=== PATIENT | female | born 1960 | race Native Hawaiian/Other Pacific Islander ===

== ENCOUNTER 2017-01-24 09:55 | Outpatient (CLI) | payer OTHER | END 2017-01-24 19:13 | disposition home or self-care (01) | LOC: MAMMO 09:55 | DX: Z12.31 Encounter for screening mammogram for malignant neoplasm of breast (principal) | CPT/HCPCS: G0202-TC ==

== ENCOUNTER 2019-06-17 11:03 | Emergency (ER) | payer OTHER ==
[~2019-06-17] VITALS: Ht 154.9 cm; Wt 59.0 kg
[2019-06-17 13:00] VITALS: BP 159/61; TEMP 97.9
== END 2019-06-17 14:32 | disposition home or self-care (01) ==
LOC: ED 11:03
DX: R30.0 Dysuria (principal); N20.0 Calculus of kidney
CPT/HCPCS: 81000; 99282; 99283

== ENCOUNTER 2020-04-20 05:50 | Emergency (ER) | payer OTHER ==
[~2020-04-20] VITALS: Ht 154.9 cm; Wt 63.5 kg
[2020-04-20 06:00] VITALS: TEMP 98
[2020-04-20 06:42] VITALS: BP 155/67
== END 2020-04-20 06:42 | disposition home or self-care (01) ==
LOC: ED 05:50
DX: M54.5 Low back pain (principal); G89.29 Other chronic pain; M54.32 Sciatica, left side; M54.31 Sciatica, right side
CPT/HCPCS: 96372; 99282; 99283; J1885; J2930

== ENCOUNTER 2020-06-02 11:37 | Outpatient (CLI) | payer OTHER | END 2020-06-02 21:25 | disposition home or self-care (01) | LOC: RAD 11:37 | DX: M54.17 Radiculopathy, lumbosacral region (principal) ==

== ENCOUNTER 2020-06-25 08:34 | Outpatient (CLI) | payer OTHER | END 2020-06-25 21:04 | disposition home or self-care (01) | LOC: CT 08:34 | DX: Z12.31 Encounter for screening mammogram for malignant neoplasm of breast (principal); F17.210 Nicotine dependence, cigarettes, uncomplicated | CPT/HCPCS: G0297-TC ==

== ENCOUNTER 2020-08-06 09:09 | Outpatient (CLI) | payer OTHER | END 2020-08-06 19:48 | disposition home or self-care (01) | LOC: MRI 09:09 | DX: B35.1 Tinea unguium (principal); M48.56XS Collapsed vertebra, not elsewhere classified, lumbar region, sequela of fracture | CPT/HCPCS: 36415; 84450; 84460 ==

== ENCOUNTER 2021-06-07 16:44 | Outpatient (CLI) | payer OTHER | END 2021-06-07 22:46 | disposition home or self-care (01) | LOC: RAD 16:44 | PROVIDERS: ATTEND Nurse Practitioner Family | DX: J20.9 Acute bronchitis, unspecified (principal) ==

== ENCOUNTER 2022-11-24 15:34 | Outpatient (CLI) | payer OTHER | END 2022-11-24 19:01 | disposition home or self-care (01) | LOC: RAD 15:34 | PROVIDERS: ATTEND Family Medicine | DX: R06.02 Shortness of breath (principal); R05.9 Cough, unspecified; M79.601 Pain in right arm ==

== ENCOUNTER 2022-12-16 10:13 | Outpatient (CLI) | payer OTHER | END 2022-12-16 19:24 | disposition home or self-care (01) | LOC: MAMMO 10:13 | PROVIDERS: ATTEND Family Medicine | DX: Z13.820 Encounter for screening for osteoporosis (principal); Z12.31 Encounter for screening mammogram for malignant neoplasm of breast; N95.8 Other specified menopausal and perimenopausal disorders ==